=== PATIENT | male | born 1990 | race Caucasian/White ===

== ENCOUNTER 2025-03-28 18:32 | Inpatient (IN) | payer MEDICAID, SELFPAY ==
[2025-03-28 18:32] VITALS: BMI 26.7
[2025-03-28 18:37] VITALS: BP 138/87; PULSE 76; RESP 18; TEMP 37; O2SAT 98
--- NOTE | 2025-03-28 18:43 | ED.C_ITS ---
Documented by User: NISH Cummings 03/28/25 20:10 HPI - Psych 2 General: Chief Complaint: Psychiatric Symptoms Stated Complaint: 96 Time Seen by Provider: 03/28/25 18:42 Source: patient Mode of arrival: EMS Limitations: no limitations History of Present Illness: Patient is a 34-year-old male who presents to the ED today after he was released from [facility] for mental health evaluation. Officers there felt patient could not safely be discharged in his current mental state. They believe he has a psychotic disorder. Affidavits from his 96-hour hold state that patient frequently talks about obtaining passports and flying to [place]. They report that his speech is illogical and displays quite a bit of paranoia and distrust. They report that he speaks incoherently and demonstrates an inability to make logical decisions. He reports he is headed to [facility] to see the [employer] without any means to get there. He makes statements that he is going to travel by ship around the world and that as a sovereign citizen he did not want any of his identifying documents including his certificate, social security card or photo identification to be transported or stored in the same location. MD complaint: altered mental status Associated symptoms: Deny auditory hallucinations, visual hallucinations, depression, homicidal ideation or suicidal ideation Related Data Home Medications ?Medication ?Instructions ?Recorded ?Confirmed camphor-eucalyptus oil-menthol 4.8 1 applic topical TI D PRN Congestion 03/28/25 03/28/25 %-1.2 %-2.6 % topical ointment (Chest Rub) naloxone 4 mg/actuation nasal spray 4 mg intranasal OK N PRN Opioid 03/28/25 03/28/25 Overdose olanzapine 10 mg tablet 10 mg PO QPM 03/28/25 Allergies Allergy/AdvReac Type Severity Reaction Status Date / Time haloperidol Allergy Intermediate ALGY-Rash Verified 03/28/25 23:12 Review of Systems 2 Const: Denies: fever(s) or chills Card: Denies: chest pain, palpitations, lightheadedness or syncope Resp: Denies: dyspnea GI: Denies: abdominal pain, nausea, vomiting or diarrhea Skin/Breast: Denies: rash Neuro: Denies: headache(s) Psych: Denies: anxiety, depression, visual hallucinations, auditory hallucinations, suicidal ideation or homicidal ideation Physical Exam 2 Const: COMMON NORMALS: no acute distress, average body habitus, patient oriented x3, no limitations, healthy appearing, alert and well nourished G ENERAL APPEARANCE: cooperative Resp: COMMON NORMALS: normal respiratory effort and clear to auscultation bilaterally AUSCULTATION: clear to auscultation bilaterally Cardio: COMMON NORMALS: regular rate and regular rhythm RATE: regular rate RHYTHM: regular rhythm Neuro: COMMON NORMALS: patient oriented x3 SENSORIUM/ORIENTATION: Yes alert Psych: COMMON NORMALS: mental status grossly normal, cooperative, normal affect, speech normal, activity/motor behavior normal, denies hallucinations, denies homicidal ideation and denies suicidal ideation APPEARANCE: Yes grossly normal ATTITUDE: Yes engaged ACTIVITY/MOTOR BEHAVIOR: Yes appropriate eye contact and No psychomotor agitation SPEECH: Yes normal speech MOOD & AFFECT: Yes euthymic mood THOUGHT PROCESS: Illogical thought process present ATTENTION/CONCENTRATION: Yes attention grossly intact and Yes concentration grossly intact INSIGHT: Fair insight present (Psych) J UDGEMENT: Fair judgement present (Psych) Course 2 Consultations: Consultation #1: Dr. Avila-accepts to NPU Vital Signs: Vital signs: Vital Signs Temperature 98.3 F 03/29/25 06:00 Pulse Rate 74 03/29/25 06:00 Respiratory Rate 18 03/29/25 06:00 Blood Pressure 105/68 03/29/25 06:00 Pulse Oximetry 98 03/29/25 06:00 Oxygen Delivery Me thod Room Air 03/29/25 06:00 MDM - Psych Medical Decision Making Patient will being admitted to NPU to Dr. Avila for treatment of psychosis. He is on a 96-hour hold. Differential Diagnosis Likely acute psychosis Medical Records I reviewed the patient's medical records. Lab Data I reviewed the patient's lab results. 03/28/25 19:09 03/28/25 19:09 Laboratory Results WBC 6.67 10^3/uL (3.29-11.43) 03/28/25 19:09 RBC 4.63 10^6/uL (3.85-5.65) 03/28/25 19:09 Hgb 13.90 g/dL (11.27-16.99) 03/28/25 19:09 Hct 40.2 % (37-53) 03/28/25 19:09 MCV 86.8 fl (82-101) 03/28/25 19:09 MCH 30.0 pg (27-33) 03/28/25 19:09 MCHC 34.6 g/dL (30-55) 03/28/25 19:09 RDW 12.1 % (12.1-15.1) 03/28/25 19:09 Plt Count 305 10^3/cmm (157-399) 03/28/25 19:09 MPV 10.7 fL (7.4-10.4) H 03/28/25 19:09 Neut % (Auto) 60.4 % 03/28/25 19:09 Lymph % (Auto) 28.2 % 03/28/25 19:09 [place] % (Auto) 8.8 % 03/28/25 19:09 Eos % (Auto) 2.1 % 03/28/25 19:09 Baso % (Auto) 0.4 % 03/28/25 19:09 Neut # (Auto) 4.02 10^3/uL (1.8-7.7) 03/28/25 19:09 Lymph # (Auto) 1.9 10^3/uL (0.8-4.8) 03/28/25 19:09 [place] # (Auto) 0.6 10^3/uL (0.2-0.9) 03/28/25 19:09 Eos # (Auto) 0.1 10^3/uL (0.0-0.8) 03/28/25 19:09 Baso # (Auto) 0.0 10^3/uL (0.0-0.1) 03/28/25 19:09 Nucleated RBC % (auto) 0 % 03/28/25 19:09 Nucleated RBCs # 0.0 /100WBC 03/28/25 19:09 Sodium 140 mmol/L (136-145) 03/28/25 19:09 Potassium 3.8 mmol/L (3.5-5.1) 03/28/25 19:09 Chloride 103 mmol/L (98-107) 03/28/25 19:09 Carbon Dioxide 25 mmol/L (22-29) 03/28/25 19:09 Anion Gap 15.8 (5-19) 03/28/25 19:09 BUN 11 mg/dL (6-20) 03/28/25 19:09 Creatinine 1.0 mg/dL (0.7-1.2) 03/28/25 19:09 GFR Calculation 86.6 mL/min (90-130) L 03/28/25 19:09 Glucose 110 mg/dL (65-115) 03/28/25 19:09 Calculated Osmolality 290 mOsm/kg (285-295) 03/28/25 19:09 Calcium 9.4 mg/dL (8.5-10.5) 03/28/25 19:09 Total Bilirubin 0.4 mg/dL (0.15-1.2) 03/28/25 19:09 AST 23 U/L (0-40) 03/28/25 19:09 ALT 24 U/L (0-41) 03/28/25 19:09 Alkaline Phosphatase 85 U/L (40-130) 03/28/25 19:09 Total Protein 7.7 g/dL (6.6-8.7) 03/28/25 19:09 Albumin 4.6 g/dL (3.5-5.2) 03/28/25 19:09 Globulin 3.1 g/dL (1.3-4.6) 03/28/25 19:09 Salicylates < 0.3 mg/dL (3-10) L 03/28/25 19:09 Urine Opiates Screen Negative ng/mL (Negative) 03/28/25 19:00 Acetaminophen < 5.0 ug/mL (10-30) L 03/28/25 19:09 Ur Barbiturates Screen Negative ng/mL (Negative) 03/28/25 19:00 Ur Phencyclidine Scrn Negative ng/mL (Negative) 03/28/25 19:00 Ur Amphetamines Screen Negative ng/mL (Negative) 03/28/25 19:00 U Benzodiazepines Scrn Negative ng/mL (Negative) 03/28/25 19:00 Urine Cocaine Screen Negative ng/mL (Negative) 03/28/25 19:00 U Marijuana (THC) Screen Negative ng/mL (Negative) 03/28/25 19:00 Ethyl Alcohol < 10 mg/dL (0-10) 03/28/25 19:09 No radiology studies performed this visit Discharge Plan Discharge Patient Disposition: Admitted As Inpatient Admit Provider: Don Avila Clinical Impression: Acute psychosis, Involuntary commitment Condition: Stable Coding Level of Care Code ED Court Worker for Mart Fwd Documented by User: David Mcgovern DO 03/29/25 07:07 HPI - Psych 2 General: Chief Complaint: Psychiatric Symptoms Stated Complaint: 96 Time Seen by Provider: 03/28/25 18:42 Related Data Home Medications ?Medication ?Instructions ?Recorded ?Confirmed camphor-eucalyptus oil-menthol 4.8 1 applic topical TI D PRN Congestion 03/28/25 03/28/25 %-1.2 %-2.6 % topical ointment (Chest Rub) naloxone 4 mg/actuation nasal spray 4 mg intranasal OK N PRN Opioid 03/28/25 03/28/25 Overdose olanzapine 10 mg tablet 10 mg PO QPM 03/28/25 Allergies Allergy/AdvReac Type Severity Reaction Status Date / Time haloperidol Allergy Intermediate ALGY-Rash Verified 03/28/25 23:12 Course 2 Vital Signs: Vital signs: Vital Signs Temperature 98.3 F 03/29/25 06:00 Pulse Rate 74 03/29/25 06:00 Respiratory Rate 18 03/29/25 06:00 Blood Pressure 105/68 03/29/25 06:00 Pulse Oximetry 98 03/29/25 06:00 Oxygen Delivery Me thod Room Air 03/29/25 06:00 MDM - Psych Medical Decision Making Patient will being admitted to NPU to Dr. Avlia for treatment of psychosis. He is on a 96-hour hold. Chart reviewed and patient discussed with midlevel. Agree with assessment and plan. Lab Data 03/28/25 19:09 03/28/25 19:09 Laboratory Results WBC 6.67 10^3/uL (3.29-11.43) 03/28/25 19:09 RBC 4.63 10^6/uL (3.85-5.65) 03/28/25 19:09 Hgb 13.90 g/dL (11.27-16.99) 03/28/25 19:09 Hct 40.2 % (37-53) 03/28/25 19:09 MCV 86.8 fl (82-101) 03/28/25 19:09 MCH 30.0 pg (27-33) 03/28/25 19:09 MCHC 34.6 g/dL (30-55) 03/28/25 19:09 RDW 12.1 % (12.1-15.1) 03/28/25 19:09 Plt Count 305 10^3/cmm (157-399) 03/28/25 19:09 MPV 10.7 fL (7.4-10.4) H 03/28/25 19:09 Neut % (Auto) 60.4 % 03/28/25 19:09 Lymph % (Auto) 28.2 % 03/28/25 19:09 [place] % (Auto) 8.8 % 03/28/25 19:09 Eos % (Auto) 2.1 % 03/28/25 19:09 Baso % (Auto) 0.4 % 03/28/25 19:09 Neut # (Auto) 4.02 10^3/uL (1.8-7.7) 03/28/25 19:09 Lymph # (Auto) 1.9 10^3/uL (0.8-4.8) 03/28/25 19:09 [place] # (Auto) 0.6 10^3/uL (0.2-0.9) 03/28/25 19:09 Eos # (Auto) 0.1 10^3/uL (0.0-0.8) 03/28/25 19:09 Baso # (Auto) 0.0 10^3/uL (0.0-0.1) 03/28/25 19:09 Nucleated RBC % (auto) 0 % 03/28/25 19:09 Nucleated RBCs # 0.0 /100WBC 03/28/25 19:09 Sodium 140 mmol/L (136-145) 03/28/25 19:09 Potassium 3.8 mmol/L (3.5-5.1) 03/28/25 19:09 Chloride 103 mmol/L (98-107) 03/28/25 19:09 Carbon Dioxide 25 mmol/L (22-29) 03/28/25 19:09 Anion Gap 15.8 (5-19) 03/28/25 19:09 BUN 11 mg/dL (6-20) 03/28/25 19:09 Creatinine 1.0 mg/dL (0.7-1.2) 03/28/25 19:09 GFR Calculation 86.6 mL/min (90-130) L 03/28/25 19:09 Glucose 110 mg/dL (65-115) 03/28/25 19:09 Calculated Osmolality 290 mOsm/kg (285-295) 03/28/25 19:09 Calcium 9.4 mg/dL (8.5-10.5) 03/28/25 19:09 Total Bilirubin 0.4 mg/dL (0.15-1.2) 03/28/25 19:09 AST 23 U/L (0-40) 03/28/25 19:09 ALT 24 U/L (0-41) 03/28/25 19:09 Alkaline Phosphatase 85 U/L (40-130) 03/28/25 19:09 Total Protein 7.7 g/dL (6.6-8.7) 03/28/25 19:09 Albumin 4.6 g/dL (3.5-5.2) 03/28/25 19:09 Globulin 3.1 g/dL (1.3-4.6) 03/28/25 19:09 Salicylates < 0.3 mg/dL (3-10) L 03/28/25 19:09 Urine Opiates Screen Negative ng/mL (Negative) 03/28/25 19:00 Acetaminophen < 5.0 ug/mL (10-30) L 03/28/25 19:09 Ur Barbiturates Screen Negative ng/mL (Negative) 03/28/25 19:00 Ur Phencyclidine Scrn Negative ng/mL (Negative) 03/28/25 19:00 Ur Amphetamines Screen Negative ng/mL (Negative) 03/28/25 19:00 U Benzodiazepines Scrn Negative ng/mL (Negative) 03/28/25 19:00 Urine Cocaine Screen Negative ng/mL (Negative) 03/28/25 19:00 U Marijuana (THC) Screen Negative ng/mL (Negative) 03/28/25 19:00 Ethyl Alcohol < 10 mg/dL (0-10) 03/28/25 19:09 Discharge Plan Discharge Patient Disposition: Admitted As Inpatient Admit Provider: Don Avila Clinical Impression: Acute psychosis, Involuntary commitment Condition: Stable Coding Level of Care Code ED Court Worker for Mart Cotter
[2025-03-28 19:23] LABS: Hematocrit 40.2 % (37-53); Hemoglobin 13.90 g/dL (11.27-16.99); Mean Corpuscular HGB Conc 34.6 g/dL (30-55); Mean Corpuscular Hemoglobin 30.0 pg (27-33); Mean Corpuscular Volume 86.8 fl (82-101); Nucleated Red Blood Cells % 0 %; Platelet Count 305 10^3/cmm (157-399); Red Blood Count 4.63 10^6/uL (3.85-5.65); White Blood Count 6.67 10^3/uL (3.29-11.43)
[2025-03-28 19:34] LABS: PCP Screen Urine Negative (Negative)
[2025-03-28 19:53] LABS: Alanine Aminotransferase 24 U/L (0-41); Alkaline Phosphatase 85 U/L (40-130); Aspartate Amino Transferase 23 U/L (0-40); Blood Urea Nitrogen 11 mg/dL (6-20); Calcium 9.4 mg/dL (8.5-10.5); Carbon Dioxide 25 mmol/L (22-29); Glucose 110 mg/dL (65-115); Total Protein 7.7 g/dL (6.6-8.7)
[2025-03-28 19:54] LABS: Alcohol Level < 10 mg/dL (0-10); Salicylate < 0.3 mg/dL (3-10)
[2025-03-28 20:08] LABS: Anion Gap 15.8 (5-19); Chloride 103 mmol/L (98-107); Osmolality Calculated 290 mOsm/kg (285-295); Potassium 3.8 mmol/L (3.5-5.1); Sodium 140 mmol/L (136-145)
[2025-03-28 20:22] LABS: Albumin Level 4.6 g/dL (3.5-5.2); Globulin 3.1 g/dL (1.3-4.6)
[2025-03-28 20:27] LABS: Acetaminophen < 5.0 ug/mL (10-30)
--- NOTE | 2025-03-28 21:07 | PC.NURSE ---
96 HH Pt served with copy of 96 HH by this RN and security. Pt stated that he was [facility] today [facility] and transferred to [facility] for a psychiatric evaluation. Pt states he wants to make accommodations at [facility] in [facility]. Pt states that he was [facility] to [facility] from [facility], but was released early. Pt able to make logical statements and questions, pt seems to be able to retain information. Pt calm and cooperative at this time.
[2025-03-28 22:45] VITALS: BP 128/85; PULSE 70; RESP 18; TEMP 36.6; O2SAT 98
[2025-03-29 06:00] VITALS: BP 105/68; PULSE 74; RESP 18; TEMP 36.8; O2SAT 98
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
[2025-03-29 14:00] VITALS: BP 133/89; PULSE 87; RESP 18; TEMP 36.7; O2SAT 97
[2025-03-29 21:50] VITALS: BP 160/98; PULSE 107; RESP 16; TEMP 36.9; O2SAT 96
[2025-03-30 05:55] VITALS: BP 116/74; PULSE 68; RESP 18; TEMP 36.4; O2SAT 97
[2025-03-30 13:51] VITALS: BP 144/71; PULSE 97; RESP 16; TEMP 36.2; O2SAT 98
--- NOTE | 2025-03-30 19:19 | P.NPUPN_ITS ---
Subjective NPU 2 Subjective: Patient presented today reporting that he is doing okay. He continues to report a desire to go to [facility] in [place]. He has reportedly been there before and they know him. He is aware enough that he a double order of his medication was inappropriate. And identified that he only receives the 10 mg of Zyprexa once a day. Additionally continued conversation increases the impression from his speech that his peculiar style of speaking is aphasic and may be not disorganized in the cognitive sense. We discussed that reality may impact the fact that we may consider discharging him to a known entity where he has been before and [facility] versus keeping him here and trying to create a forced medication situation. He denied any side effects to his medication. Mental Status Exam 2 MSE Comments: This is a well-nourished well-developed white male in hospital scrubs with adequate grooming and fairly intense eye contact. Significant male pattern baldness. No abnormal movements except for mild psychomotor retardation. Cooperative with exam in mild to moderate distress. Speech was normal rate and volume but fairly monotone with limited prosody. Mood described as all right, affect congruent but odd. Thought process linear at times but other times quite disorganized with tangential comments and almost aphasic pattern. Thought content: Patient denied suicidal or homicidal ideation, there were delusions reported but guardedness and paranoia noted, he denied any auditory or visual hallucinations. Attention and concentration were mostly intact was unreliable mostly secondary to his disorganization, but none were formally tested. He is alert and oriented to person and place. And judgment are limited and impulse control also limited. Vitals/I&O/Wt Last Vital Signs Temp 97.6 F 03/30/25 20:28 Pulse 76 03/30/25 20:28 Resp 18 03/30/25 20:28 BP 143/90 03/30/25 20:28 Pulse Ox 96 03/30/25 20:28 O2 Del Method Room Air 03/30/25 20:28 Data NPU 03/28/25 19:09 03/28/25 19:09 A&P Assessment and plan 1. Acute psychosis: 2. 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 He presents having been discharged from the [facility] and referred to psychiatric care secondary to psychosis and disorganization with a desire though to get back to work and limited insight into the significance of his impairments. He reports being managed on Zyprexa during this past 3 years incarcerated. Patient currently in sustained remission but had been in a locked facility. 1. Continue current medication. Will attempt to get patient to consider an alternative or possibly synergistic antipsychotic given his continued thought disorder on his medication. 2. Encourage individual, group and milieu therapy. 3. Continue every 2 minute checks for safety. 4. Encouraged sober living treatment after discharge to the hospital care to which he is willing to commit. 5. Obtain collateral information. And family report that this is likely baseline and a sequela of his significant drug use. 6. Observe against the backdrop of the 96-hour hold. May allow him to discharge in the next 48 hours. PDMP PDMP Reviewed: Not Reviewed Involuntary Hold Information 2 Hold Status: Legal Status: 96 Hour Hold Date/Time Hold Expires: 1 06/02/24@18:40 Attestations NPU 2 Medical Necessity Statement*: * Inpatient hospitalization is medically necessary and the clinically appropriate intervention at this time. We will monitor/initiate medications and make changes as indicated. Likely length of stay 1-3 days. 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
[2025-03-30 20:28] VITALS: BP 143/90; PULSE 76; RESP 18; TEMP 36.4; O2SAT 96
[2025-03-31 06:00] VITALS: BP 163/86; PULSE 75; RESP 17; TEMP 36.4; O2SAT 98
--- NOTE | 2025-03-31 11:58 | W.PM.NPUDCS ---
Diagnoses at Discharge Discharge Diagnosis 1. Acute psychosis: 2. Severe methamphetamine use disorder in sustained remission: Reason for Visit Reason for Visit: 96 Involuntary Hold Information Hold Status: Legal Status: 96 Hour Hold Date/Time Hold Expires: 04/01/25@18:40 Mental Status Exam MSE Comments: This is a well-nourished well-developed white male in hospital scrubs with adequate grooming and fairly intense eye contact. Significant male pattern baldness. No abnormal movements except for mild psychomotor retardation. Cooperative with exam in mild to moderate distress. Speech was normal rate and volume but fairly monotone with limited prosody. Mood described as all right, affect congruent but odd. Thought process linear at times but other times quite disorganized with tangential comments and almost aphasic pattern. Thought content: Patient denied suicidal or homicidal ideation, there were delusions reported but guardedness and paranoia noted, he denied any auditory or visual hallucinations. Attention and concentration were mostly intact was unreliable mostly secondary to his disorganization, but none were formally tested. He is alert and oriented to person and place. And judgment are limited and impulse control also limited. Discharge Data Studies Completed and Pending: Laboratory Results WBC 6.67 10^3/uL (3.2 9-11.43) 03/28/25 19:09 RBC 4.63 10^6/uL (3.8 5-5.65) 03/28/25 19:09 Hgb 13.90 g/dL (11.27 -16.99) 03/28/25 19:09 Hct 40.2 % (37-53) 03/28/25 19:09 MCV 86.8 fl (82-101) 03/28/25 19:09 MCH 30.0 pg (27-33) 03/28/25 19:09 MCHC 34.6 g/dL (30-55) 03/28/25 19:09 RDW 12.1 % (12.1-15.1 ) 03/28/25 19:09 Plt Count 305 10^3/cmm (157 -399) 03/28/25 19:09 MPV 10.7 fL (7.4-10.4 ) H 03/28/25 19:09 Neut % (Auto) 60.4 % 03/28/25 19:09 Lymph % (Auto) 28.2 % 03/28/25 19:09 [place] % (Auto) 8.8 % 03/28/25 19:09 Eos % (Auto) 2.1 % 03/28/25 19:09 Baso % (Auto) 0.4 % 03/28/25 19:09 Neut # (Auto) 4.02 10^3/uL (1.8 -7.7) 03/28/25 19:09 Lymph # (Auto) 1.9 10^3/uL (0.8- 4.8) 03/28/25 19:09 [place] # (Auto) 0.6 10^3/uL (0.2- 0.9) 03/28/25 19:09 Eos # (Auto) 0.1 10^3/uL (0.0- 0.8) 03/28/25 19:09 Baso # (Auto) 0.0 10^3/uL (0.0- 0.1) 03/28/25 19:09 Nucleated RBC % (a uto) 0 % 03/28/25 19:09 Nucleated RBCs # 0.0 /100WBC 03/28/25 19:09 Sodium 140 mmol/L (136-1 45) 03/28/25 19:09 Potassium 3.8 mmol/L (3.5-5 .1) 03/28/25 19:09 Chloride 103 mmol/L (98-10 7) 03/28/25 19:09 Carbon Dioxide 25 mmol/L (22-29) 03/28/25 19:09 Anion Gap 15.8 (5-19) 03/28/25 19:09 BUN 11 mg/dL (6-20) 03/28/25 19:09 Creatinine 1.0 mg/dL (0.7-1. 2) 03/28/25 19:09 GFR Calculation 86.6 mL/min (90-1 30) L 03/28/25 19:09 Glucose 110 mg/dL (65-115 ) 03/28/25 19:09 Calculated Osmolal ity 290 mOsm/kg (285- 295) 03/28/25 19:09 Calcium 9.4 mg/dL (8.5-10 .5) 03/28/25 19:09 Total Bilirubin 0.4 mg/dL (0.15-1 .2) 03/28/25 19:09 AST 23 U/L (0-40) 03/28/25 19:09 ALT 24 U/L (0-41) 03/28/25 19:09 Alkaline Phosphata se 85 U/L (40-130) 03/28/25 19:09 Total Protein 7.7 g/dL (6.6-8.7 ) 03/28/25 19:09 Albumin 4.6 g/dL (3.5-5.2 ) 03/28/25 19:09 Globulin 3.1 g/dL (1.3-4.6 ) 03/28/25 19:09 Salicylates < 0.3 mg/dL (3-10 ) L 03/28/25 19:09 Urine Opiates Scre en Negative ng/mL (N egative) 03/28/25 19:00 Acetaminophen < 5.0 ug/mL (10-3 0) L 03/28/25 19:09 Ur Barbiturates Sc reen Negative ng/mL (N egative) 03/28/25 19:00 Ur Phencyclidine S crn Negative ng/mL (N egative) 03/28/25 19:00 Ur Amphetamines Sc reen Negative ng/mL (N egative) 03/28/25 19:00 U Benzodiazepines Scrn Negative ng/mL (N egative) 03/28/25 19:00 Urine Cocaine Scre en Negative ng/mL (N egative) 03/28/25 19:00 U Marijuana (THC) Screen Negative ng/mL (N egative) 03/28/25 19:00 Ethyl Alcohol < 10 mg/dL (0-10) 03/28/25 19:09 Vitals: Last Vital Signs Temp 97.6 F 03/31/25 06:00 Pulse 75 03/31/25 06:00 Resp 17 03/31/25 06:00 BP 163/86 03/31/25 06:00 Pulse Ox 98 03/31/25 06:00 O2 Del Method Room Air 03/31/25 06:00 Discharge Plan Discharge Patient Disposition: Home Condition: Stable Prescriptions: Continued Chest Rub 4.8-1.2-2.6 % Ointment 1 applic TOPICAL TID PRN (Reason: Congestion) naloxone 4 mg/actuation [place],Non-Aerosol 4 mg INTRANASAL PRN PRN (Reason: Opioid Overdose) olanzapine 10 mg Tablet 10 mg PO QPM 30 Days Qty: 30 1RF Discharge Order = DC NOW: Discharge Order (Routine); Ordered 03/31/25 Ordered By: Don Avila Referrals: Kathy Ellington [Other] - 03/31/25 4:00 pm [facility] [Outside] - 1-3 days Referral Note: Walk in for services Friday thru Friday 8am to 5pm Discharge Diet: Regular Discharge Activity: Resume usual activity Patient Instructions: Opioid Safety, Patient Portal & [place] Instructions Discharge Attestations NPU Time Spent in Discharge Care*: less than 30 min Specific Discharge Activities: Specific discharge activities: educating patient, discussing with pillowcase turner/social workers/dc planners, documenting/other paperwork and evaluating patient/reviewing data Coding Level of Care Code Acute Code for Chg Fwd Diagnoses Acute psychosis F23 Severe methamphetamine use disorder in sustained remission F15.21
[2025-03-31 12:03] VITALS: BP 163/86; PULSE 75; RESP 17; TEMP 36.4; O2SAT 98
[2025-03-31 14:00] VITALS: RESP 16
== END 2025-03-31 13:57 | disposition home or self-care (01) | DRG 750 ==
LOC: ER 19:36 → NP 21:34
PROVIDERS: Admitting Provider Psychiatry & Neurology Psychiatry; Emergency Provider Physician Assistant; Visit Provider Psychiatry & Neurology Psychiatry
DX: F23 Brief psychotic disorder (principal); F15.21 Other stimulant dependence, in remission
CPT/HCPCS: 36415; 80053; 80306; 80307; 85025; 97150; 97165; 99285; J9999